=== PATIENT | male | born 1990 | race African-American/Black ===

== ENCOUNTER 2017-04-01 10:11 | Emergency (ER) | payer SELFPAY ==
[~2017-04-01] VITALS: Ht 180.3 cm; Wt 66.7 kg
[2017-04-01] MEDS ORDERED: NKM (10:24)
[2017-04-01 10:40] VITALS: BP 135/86
--- NOTE | 2017-04-01 10:59 | Emergency Room Report ---
History of Present Illness General Chief Complaint: Headache Source: Patient Present Illness HPI Patient presents that he woke up this morning around 6 With a tingling sensation to the top parietal area of the scalp bilaterally Denies any pain denies any neck pain denies any chest pain or shortness of breath Denies any back or flank pain Patient reports that he smoked marijuana and drank alcohol last night He did wake up earlier than usual Denies any focal weakness denies any change in speech Allergies: Coded Allergies: No Known Allergies (Unverified , 04/01/17) Patient History Past Medical History: see triage record Pertinent Family History: none Reviewed Nursing Documentation: PMH: Agreed, PSxH: Agreed Nursing Documentation-PMH Past Medical History: No Stated History Review of Systems All Other Systems: negative except mentioned in HPI Physical Exam Vital Signs Date Time Temp Pulse Resp B/P Pulse Ox O2 Delivery O2 Flow Rate FiO2 04/01/17 10:19 98.2 103 16 135/86 100 Room Air Sp02 EP Interpretation: reviewed, normal General Appearance: well appearing, no apparent distress Head: normocephalic, atraumatic Eyes: bilateral eye EOMI, bilateral eye PERRL ENT: hearing grossly normal, normal pharynx, TMs + canals normal, uvula midline Neck: full range of motion, supple, no meningismus, no bony tend Respiratory: lungs clear, normal breath sounds, no rhonchi, no respiratory distress, no retraction, no accessory muscle use Cardiovascular #1: normal peripheral pulses, regular rate, rhythm, no edema, no gallop, no JVD, no murmur Gastrointestinal: normal bowel sounds, non tender, soft, no mass, no organomegaly, non-distended, no guarding, no hernia, no pulsatile mass, no rebound Genitourinary: no CVA tenderness Musculoskeletal: normal inspection Neurologic: oriented x3, responsive, brim pouncer III-XII nml as tested, motor strength/ tone normal, sensory intact Psychiatric: mood/affect normal Skin: normal color, no rash, warm/dry, palpation normal Lymphatic: normal inspection, no adenopathy Medical Decision Making Diagnostic Impression: Primary Impression: Headache ER Course Multiple differentials considered Including but not limited to intracranial, metabolic, cardiac pathology patient has a benign neurological exam No focal deficits At this time most of his discomfort is essentially a tingling sensation No other pain is noted no other dermatomal findings I feel the patient is stable for initial conservative outpatient trial Last Vital Signs Date Time Temp Pulse Resp B/P Pulse Ox O2 Delivery O2 Flow Rate FiO2 04/01/17 10:40 98.2 16 135/86 100 Room Air 04/01/17 10:19 103 Status: improved Disposition: HOME, SELF-CARE Condition: Stable Departure Forms: Return to Work Return to Work in (Days): 1 Return to Work Date: April 02, 2017 Patient Instructions: General Headache Without Cause Additional Instructions: Patient is provided with the discharge instructions notified to follow up with primary doctor in the next 2-3 days otherwise return to the er with any worsening symptoms. Please note that this report is being documented using [employer] technology. This can lead to erroneous entry secondary to incorrect interpretation by the dictating instrument. GOYO LYMAN D.O. April 01, 2017 10:59
== END 2017-04-01 11:00 | disposition home or self-care (01) ==
LOC: EMR 10:47
DX: R51 Headache (principal); F12.90 Cannabis use, unspecified, uncomplicated
CPT/HCPCS: 99282

== ENCOUNTER 2017-11-16 15:33 | Emergency (ER) | payer MEDICAID ==
[~2017-11-16] VITALS: Ht 180.3 cm; Wt 68.0 kg
[~2017-11-16 15:33] MED LIST: NKM
[2017-11-16 16:01] VITALS: BP 126/58
[2017-11-16 16:10] VITALS: BP 126/58
--- NOTE | 2017-11-16 16:14 | Emergency Room Report ---
History of Present Illness General Chief Complaint: Skin Rash/Abscess Source: Patient Present Illness HPI 27 YO Male presents to the ED c/o rash on Non-pruritic erythematous plaques that are small and circular in appearance x2 weeks denies. Denies preceding URI no history of allergies. Denies lesions/rashes elsewhere on the body. Denies new medications or body washes or creams. Denies swelling of the lips, tongue , throat or airway. Denies wheezing, or shortness of breath. Denies recent travel, recent illness or ill contacts. denies blisters, oral lesions, or sloughing of the skin. Allergies: Coded Allergies: No Known Allergies (Unverified , 04/01/17) Patient History Past Medical History: see triage record Past Surgical History: none Pertinent Family History: none Reviewed Nursing Documentation: PMH: Agreed, PSxH: Agreed Nursing Documentation-PMH Past Medical History: No Stated History Review of Systems All Other Systems: negative except mentioned in HPI Physical Exam Vital Signs Date Time Temp Pulse Resp B/P (MAP) Pulse Ox O2 Delivery O2 Flow Rate FiO2 11/16/17 15:53 99.1 94 16 126/58 99 Room Air Sp02 EP Interpretation: reviewed, normal General Appearance: no apparent distress, alert, GCS 15, non-toxic Head: normocephalic, atraumatic Eyes: bilateral eye normal inspection, bilateral eye PERRL ENT: hearing grossly normal, normal pharynx, no angioedema, normal voice Neck: full range of motion Respiratory: chest non-tender, lungs clear, normal breath sounds, no rhonchi, no respiratory distress, no wheezing, speaking full sentences Cardiovascular #1: regular rate, rhythm, normal capillary refill Gastrointestinal: normal bowel sounds, non tender, soft, other - rash- see skin exam Rectal: deferred Genitourinary: normal inspection Musculoskeletal: back normal, gait/station normal, normal range of motion, non- tender Neurologic: alert, oriented x3, responsive, motor strength/tone normal, sensory intact, normal gait, speech normal, grossly normal Psychiatric: judgement/insight normal Skin: normal color, warm/dry, well hydrated, rash - many Non-pruritic 3-4mm erythematous plaques that are small and circular in appearance on anterior chest , back and proximal UE's bilaterally. scant plaques on the Wrists Lymphatic: no adenopathy Medical Decision Making PA Attestation Dr. mendoza is my supervising Physician whom patient management has been discussed with. Diagnostic Impression: Primary Impression: Rash and other nonspecific skin eruption ER Course Pt. presents to the ED c/o rash on Non-pruritic erythematous plaques that are small and circular in appearance x2 weeks denies. Denies preceding URI no history of allergies. Denies lesions/rashes elsewhere on the body. Denies new medications or body washes or creams. Denies swelling of the lips, tongue , throat or airway. Denies wheezing, or shortness of breath. Denies recent travel , recent illness or ill contacts. denies blisters, oral lesions, or sloughing of the skin. Ddx considered but are not limited to cellulitis, scabies, shingles, varicella, dermatitis, urticaria, eczema, tinea, viral exanthem, SJS Vital signs: are WNL, pt. is afebrile H&PE are most consistent with non-specific rash, No evidence of impending airway compromise, no stridor or wheezing. Patient is nontoxic in appearance. ORDERS: none required at this time, the diagnosis is clinical ED INTERVENTIONS: None required at this time. -Discussed with patient that she will be treated with topical corticosteroids and to monitor her progression in size of the plaques if they become larger after application of steroid he needs to discontinue immediately as I could indicate fungal infection. follow up with rehabilitation therapy aide. DISCHARGE: At this time pt. is stable for d/c to home. Will provide printed patient care instructions, and any necessary prescriptions. Care plan and follow up instructions have been discussed with the patient prior to discharge. Last Vital Signs Date Time Temp Pulse Resp B/P (MAP) Pulse Ox O2 Delivery O2 Flow Rate FiO2 11/16/17 16:01 99.1 16 126/58 99 Room Air 11/16/17 15:53 94 Disposition: HOME, SELF-CARE Condition: Stable Scripts Triamcinolone Acet (Triamcinolone Acetonide) 80 Gm Cream..g. 1 APPLIC APPLIC BID, #80 GM Prov: Risa Young 11/16/17 Patient Instructions: Rash Additional Instructions: Take medications as directed. --Discontinue topical cream if plaques become larger in size. `this would indicate fungal infection and topical steroids need to be stopped. Follow up with a Primary Care Provider for DERMATOLOGY referral in 3-5 days --Please review list of primary care clinics, if you do not already have a primary care provider Return sooner to ED if new symptoms occur, or current symptoms become worse. - Please note that this Emergency Department Report was dictated using [employer] technology software, occasionally this can lead to erroneous entry secondary to interpretation by the dictation equipment. Risa Young Nov 16, 2017 16:14
[2017-11-16] MEDS ORDERED: KENALOG 0.1% CR15 GM APPLIC (16:16)
== END 2017-11-16 16:30 | disposition home or self-care (01) ==
LOC: EMR 16:18
DX: R21 Rash and other nonspecific skin eruption (principal)
CPT/HCPCS: 99283